=== PATIENT | female | born 1990 | race Caucasian/White ===

== ENCOUNTER 2017-02-14 21:31 | Emergency (ER) | payer MEDICAID ==
[2017-02-14 21:38] VITALS: BP 113/70
--- NOTE | 2017-02-14 22:12 | RADIOLOGY REPORT (SQ) ---
EXAM DESCRIPTION: KNEE RIGHT 3 VIEWS COMPLETED DATE/TIME: 02/14/2017 9:56 pm REASON FOR STUDY: fall COMPARISON: None. NUMBER OF VIEWS: Three views. TECHNIQUE: AP, lateral, and sunrise patella radiographic images acquired of the right knee. LIMITATIONS: None. FINDINGS: MINERALIZATION: Normal. BONES: No acute fracture or dislocation. No worrisome bone lesions. JOINT: No effusion. SOFT TISSUES: No soft tissue swelling. No radio-opaque foreign body. OTHER: No other significant finding. IMPRESSION: NEGATIVE STUDY OF THE RIGHT KNEE. NO RADIOGRAPHIC EVIDENCE OF ACUTE INJURY. TECHNICAL DOCUMENTATION: JOB ID: [id number] [employer]- All Rights Reserved
[2017-02-14] MEDS ORDERED: IBUPROFEN 600 MG TABLET PO ONE (22:53)
[2017-02-14] MEDS ORDERED: ACETAMINOPHEN 325 MG TABLET PO ONE (22:53)
--- NOTE | 2017-02-14 22:59 | ER Document Report ---
ED General - General Chief Complaint: Knee Injury Stated Complaint: RIGHT KNEE PAIN Time Seen by Provider: 02/14/17 22:48 Notes: Patient is a 26-year-old female who presents with right knee pain. Patient states this happened after she landed directly onto the knee with the entirety of her body weight while playing with her children. She states that she immediately developed a severe, constant, throbbing pain to the knee. Flexion of the knee worsens the pain. She has not tried any to improve the pain. She denies any history of prior injuries to the knee. She has not been able to ambulate secondary to pain. She denies any additional areas of injury or additional concerns. She has not seen her primary doctor regarding today's concerns. TRAVEL OUTSIDE OF THE [place] IN LAST 30 DAYS: No - Related Data Allergies/Adverse Reactions: No Known Allergies Allergy (Unverified 02/14/17 23:07) Past Medical History - General Information source: Patient - Social History Smoking Status: Current Every Day Smoker Frequency of alcohol use: None Drug Abuse: None Lives with: Spouse/Significant other Family History: Reviewed & Not Pertinent Review of Systems - Review of Systems Notes: Constitutional: Negative for fever. Eyes: Negative for visual changes. ENT: Negative for facial injury Cardiovascular: Negative for chest injury. Respiratory: Negative for shortness of breath. Gastrointestinal: Negative for abdominal injury. Genitourinary: Negative for genital injury Musculoskeletal: Positive right knee injury Skin: Negative for laceration/abrasions. Neurological: Negative for head injury. Physical Exam - Vital signs Vitals: Temp Pulse Resp BP Pulse Ox 98.1 F 110 H 18 113/70 97 02/14/17 21:37 02/14/17 21:37 02/14/17 21:37 02/14/17 21:37 02/14/17 21:37 Interpretation: Tachycardic - Resolved at the time of my reassessment at heart rate of 82 Notes: PHYSICAL EXAMINATION: GENERAL: Well-appearing, well-nourished and in no acute distress. HEAD: Atraumatic, normocephalic. EYES: sclera anicteric, conjunctiva are normal. ENT: Moist mucous membranes. NECK: Normal range of motion LUNGS: Normal work of breathing HEART: 2+ DP pulse bilaterally EXTREMITIES: no pitting or edema. No swelling to the right knee. Able to hold the knee in extension without difficulty. Able to flex the knee to 90 with mild pain. No anterior laxity. NEUROLOGICAL: No focal neurological deficits. Moves all extremities spontaneously and on command. PSYCH: Normal mood, normal affect. SKIN: Warm, Dry, normal turgor, superficial abrasion over the right patellar surface Course - Re-evaluation Re-evalutation: 02/14/17 22:57 No evidence of a septic joint, gout flare, dislocation, or fracture on exam and imaging. Suspect likely soft tissue contusion based on history of direct blow to the knee. Low clinical suspicion of an acute ligamentous injury as patient does not have a mechanism to suggest is no significant swelling to the knee. 2 + DP pulses on the right. No additional injuries. Vitals wnl. At this time, I do not see an indication for labs or further imaging. At this time will discharge with return precautions and follow-up recommendations. Verbal discharge instructions given a the bedside and opportunity for questions given. Medication warnings reviewed. Patient is in agreement with this plan and has verbalized understanding of return precautions and the need for primary care follow-up in the next 24-72 hours. - Vital Signs Vital signs: Temp Pulse Resp BP Pulse Ox 98.1 F 110 H 18 113/70 97 02/14/17 21:37 02/14/17 21:37 02/14/17 21:37 02/14/17 21:37 02/14/17 21:37 - Diagnostic Test Radiology reviewed: Image reviewed, Reports reviewed Radiology results interpreted by me: 02/15/17 02:28 Right knee x-ray: No acute fracture or dislocation Discharge - Discharge Clinical Impression: Right knee injury Qualifiers: Encounter type: initial encounter Qualified Code(s): S89.91XA - Unspecified injury of right lower leg, initial encounter Condition: Good Disposition: HOME, SELF-CARE Additional Instructions: Your x-ray does not show any acute fracture today. You likely have a soft tissue contusion. You should continue to take anti-inflammatories such as ibuprofen 600 mg every 6 hours. Continue to apply ice to the area is much your able. Please follow-up with your primary care physician if you do not have improving your symptoms in the next 1-2 weeks. Please return immediately if you develop weakness, numbness, spreading redness from the area, or any other symptoms that are concerning to you.
== END 2017-02-14 23:26 | disposition home or self-care (01) ==
LOC: ER 21:31
DX: S89.91XA Unspecified injury of right lower leg, initial encounter (principal); M25.561 Pain in right knee; F17.200 Nicotine dependence, unspecified, uncomplicated; W22.8XXA Striking against or struck by other objects, initial encounter
CPT/HCPCS: 99283; 73562; L1830; J3490 ×2

== ENCOUNTER 2017-06-17 23:59 | Inpatient (IN) | payer OTHER, MEDICAID ==
[2017-06-18] MEDS ORDERED: DIPH/PERTUSS(ACELL)/TETANUS VAC/PF 0.5 ML SYR (>=10YO) IM ONE (00:46)
[2017-06-18] MEDS ORDERED: ACETAMINOPHEN 325 MG TABLET PO ONE (00:46)
[2017-06-18] MEDS ORDERED: LIDOCAINE 1% INJ-PF (10 MG/ML) 30 ML SDV INJ ONE (00:48)
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
[2017-06-18] MEDS ORDERED: CEFAZOLIN 1 GM/D5W RTU 1 GM/50 ML RTUPB IV ONE (02:25)
[2017-06-18] MEDS ORDERED: HYDROMORPHONE HCL INJ/PF 2 MG/ML AMPULE IV ONE (02:35)
[2017-06-18] MEDS ORDERED: CEFTRIAXONE INJ 1000 MG VIAL ONE (02:46)
[2017-06-18] MEDS ORDERED: OXYCODONE-ACETAMINOPHEN 5-325 MG TABLET PO PRN ×3 (03:00→09:05)
[2017-06-18] MEDS ORDERED: ONDANSETRON HCL INJ/PF 4 MG/2 ML SDV IV PRN ×2 (03:00→09:05)
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
[2017-06-18] MEDS: FENTANYL CITRATE INJ/PF 100 MCG/2 ML AMPUL IV PRN ×2 (05:51→10:15)
[2017-06-18 06:11] LABS: ABSOLUTE BASOPHILS # (AUTO) 0.1 10^3/uL (0.0-0.2); ABSOLUTE LYMPHOCYTES (AUTO) 2.6 10^3/uL (0.5-4.7); ABSOLUTE MONOCYTES (AUTO) 0.8 10^3/uL (0.1-1.4); ABSOLUTE NEUT (AUTO) 13.6 10^3/uL (1.7-8.2); BASOPHILS % (AUTO) 0.4 % (0-2); EOSINOPHILS % (AUTO) 0.2 % (0-6); HEMATOCRIT 37.4 % (36.0-47.0); HEMOGLOBIN 13.1 g/dL (12.0-15.5); LYMPHOCYTES % (AUTO) 15.4 % (13-45); MEAN CORPUSCULAR HEMOGLOBIN 31.7 pg (27.0-33.4); MEAN CORPUSCULAR HGB CONC 34.9 g/dL (32.0-36.0); MEAN CORPUSCULAR VOLUME 91 fl (80-97); MONOCYTES % (AUTO) 4.7 % (3-13); PLATELET COUNT 232 10^3/uL (150-450); RED BLOOD COUNT 4.12 10^6/uL (3.72-5.28); RED CELL DISTRIBUTION WIDTH 13.9 % (11.5-14.0); SEGMENTED NEUTROPHILS % (AUTO) 79.3 % (42-78); TOTAL CELLS COUNTED % (AUTO) 100 %; WHITE BLOOD COUNT 17.2 10^3/uL (4.0-10.5)
[2017-06-18 06:46] LABS: ANION GAP 11 (5-19); BLOOD UREA NITROGEN 19 mg/dL (7-20); CALCIUM 9.4 mg/dL (8.4-10.2); CARBON DIOXIDE 23 mmol/L (22-30); CHLORIDE 108 mmol/L (98-107); GLUCOSE 95 mg/dL (75-110); POTASSIUM 3.6 mmol/L (3.6-5.0); SODIUM 142.2 mmol/L (137-145)
[2017-06-18] MEDS ORDERED: FENTANYL CITRATE INJ/PF 100 MCG/2 ML AMPUL ONE ×3 (07:50→10:44)
[2017-06-18] MEDS ORDERED: LIDOCAINE 2% INJ-PF (20 MG/ML) 10 ML AMPUL ONE (07:50)
[2017-06-18] MEDS ORDERED: DEXAMETHASONE SOD PHOSPHATE INJ 4 MG/1 ML VIAL ONE (07:51)
[2017-06-18] MEDS ORDERED: ONDANSETRON HCL INJ/PF 4 MG/2 ML SDV ONE (07:51)
[2017-06-18] MEDS ORDERED: PROPOFOL INJ 200 MG/20 ML VIAL IV ONE (07:51)
[2017-06-18] MEDS ORDERED: EPHEDRINE SULFATE INJ 50 MG/1 ML AMPULE ONE (07:51)
[2017-06-18] MEDS ORDERED: ACETAMINOPHEN 100 ML IV ONE (07:51)
[2017-06-18] MEDS ORDERED: MIDAZOLAM 2 MG/2 ML INJ ONE (07:51)
[2017-06-18] MEDS ORDERED: ALBUTEROL SULFATE 0.083% NEB 2.5 MG/3 ML AMPUL NEB ONE (08:07)
[2017-06-18] MEDS ORDERED: CEFAZOLIN INJ 1 GM VIAL ONE ×2 (08:17→08:23)
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
[2017-06-18] MEDS: CEFAZOLIN SODIUM 2 GM in NORMAL SALINE 100 ML IV SCH ×2 (08:38→10:07)
[2017-06-18] MEDS ORDERED: CEFAZOLIN 2 GM/D5W RTU 2 GM/50 ML RTUPB IV SCH (09:00)
[2017-06-18] MEDS ORDERED: FENTANYL CITRATE INJ/PF 100 MCG/2 ML AMPUL IV PRN ×4 (09:05→10:06)
[2017-06-18] MEDS ORDERED: MORPHINE SULFATE 10 MG/ML INJ IV PRN (09:05)
[2017-06-18] MEDS ORDERED: DIPHENHYDRAMINE HCL 50 MG/ML VIAL IV PRN (09:05)
[2017-06-18] MEDS ORDERED: MEPERIDINE HCL/PF INJ 25 MG/1 ML DISP.SYRIN IV PRN (09:05)
[2017-06-18] MEDS ORDERED: PROMETHAZINE HCL INJ 25 MG/1 ML VIAL IV PRN ×2 (09:05)
[2017-06-18] MEDS ORDERED: VECURONIUM BROMIDE INJ 10 MG VIAL IV ONE (09:08)
[2017-06-18] MEDS ORDERED: SUCCINYLCHOLINE CHLORIDE INJ 200 MG/10 ML VIAL ONE (09:08)
[2017-06-18] MEDS ORDERED: BUPIVACAINE HCL 0.5 % INJ/PF 30 ML SDV ONE (09:37)
[2017-06-18] MEDS ORDERED: BUPIVACAINE HCL 0.5 % INJ/PF 30 ML SDV INJ ONE ×2 (09:41)
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
[2017-06-18] MEDS ORDERED: KETOROLAC TROMETHAMINE 60 MG/2 ML SDV ONE (10:11)
[2017-06-18] MEDS ORDERED: OXYCODONE-ACETAMINOPHEN 5-325 MG TABLET ONE (10:11)
--- NOTE | 2017-06-18 10:11 | RADIOLOGY REPORT (SQ) ---
EXAM DESCRIPTION: ELBOW LEFT OVER 2 VIEWS; NO CHG FLUORO COMPLETED DATE/TIME: 06/18/2017 10:01 am REASON FOR STUDY: LEFT ELBOW ORIF COMPARISON: 06/18/2017 FLUOROSCOPY TIME: 0.1 MINUTE 2 images saved to PACS. TECHNIQUE: Intra-operative images acquired during surgical procedure to evaluate progress. NUMBER OF IMAGES: 2 LIMITATIONS: None. FINDINGS: 2 FLUOROSCOPIC IMAGES ACQUIRED OF THE LEFT ELBOW FOLLOWING REMOVAL OF BONE FRAGMENT ADJACE NT TO THE MEDIAL EPICONDYLE WITHOUT GROSS COMPLICATION IDENTIFIED. IMPRESSION: IMAGE(S) OBTAINED DURING PROCEDURE. COMMENT: Quality ID 145: Final reports for procedures using fluoroscopy that document radiation exp osure indices, or exposure time and number of fluorographic images (if radiation exposure indices are not available) Please consult full operative report of the attending physician for description of the procedure. TECHNICAL DOCUMENTATION: JOB ID: [id number] [employer]- All Rights Reserved Reading location - IP/workstation name: [email or web address]
--- NOTE | 2017-06-18 10:11 | RADIOLOGY REPORT (SQ) ---
EXAM DESCRIPTION: ELBOW LEFT OVER 2 VIEWS; NO CHG FLUORO COMPLETED DATE/TIME: 06/18/2017 10:01 am REASON FOR STUDY: LEFT ELBOW ORIF COMPARISON: 06/18/2017 FLUOROSCOPY TIME: 0.1 MINUTE 2 images saved to PACS. TECHNIQUE: Intra-operative images acquired during surgical procedure to evaluate progress. NUMBER OF IMAGES: 2 LIMITATIONS: None. FINDINGS: 2 FLUOROSCOPIC IMAGES ACQUIRED OF THE LEFT ELBOW FOLLOWING REMOVAL OF BONE FRAGMENT ADJACE NT TO THE MEDIAL EPICONDYLE WITHOUT GROSS COMPLICATION IDENTIFIED. IMPRESSION: IMAGE(S) OBTAINED DURING PROCEDURE. COMMENT: Quality ID 145: Final reports for procedures using fluoroscopy that document radiation exp osure indices, or exposure time and number of fluorographic images (if radiation exposure indices are not available) Please consult full operative report of the attending physician for description of the procedure. TECHNICAL DOCUMENTATION: JOB ID: [id number] [employer]- All Rights Reserved Reading location - IP/workstation name: [email or web address]
[2017-06-18] MEDS ORDERED: ESMOLOL HCL INJ/PF 100 MG/10 ML SDV IV ONE (10:12)
[2017-06-18 14:21] VITALS: BP 118/66
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
== END 2017-06-18 14:52 | disposition home or self-care (01) | DRG 494 ==
LOC: ER 23:59 → EH 06-18 03:32 → 5 06-18 05:36
PROVIDERS: ADMIT Internal Medicine; ATTEND Internal Medicine
PROC: 0MQ40ZZ Repair Left Elbow Bursa and Ligament, Open Approach (ICD-10-PCS; 2017-06-18)
PROC: 01S40ZZ Reposition Ulnar Nerve, Open Approach (ICD-10-PCS; 2017-06-18)
PROC: 0HQEXZZ Repair Left Lower Arm Skin, External Approach (ICD-10-PCS; 2017-06-18)
PROC: 0HQFXZZ Repair Right Hand Skin, External Approach (ICD-10-PCS; 2017-06-18)
PROC: 3E0234Z Introduction of Serum, Toxoid and Vaccine into Muscle, Percutaneous Approach (ICD-10-PCS; 2017-06-18)
PROC: 0PBG0ZZ Excision of Left Humeral Shaft, Open Approach (ICD-10-PCS; principal; 2017-06-18 08:30)
DX: S42.442B Displaced fracture (avulsion) of medial epicondyle of left humerus, initial encounter for open fracture (principal); S92.425A Nondisplaced fracture of distal phalanx of left great toe, initial encounter for closed fracture; S61.421A Laceration with foreign body of right hand, initial encounter; S51.012A Laceration without foreign body of left elbow, initial encounter; F17.210 Nicotine dependence, cigarettes, uncomplicated; F31.9 Bipolar disorder, unspecified; F43.10 Post-traumatic stress disorder, unspecified; V48.1XXA Car passenger injured in noncollision transport accident in nontraffic accident, initial encounter; Z23 Encounter for immunization
CPT/HCPCS: 01740; 36415; 70450; 72125; 80048; 84703; 85025; 90471; 90715; 96365; 96375; 99285; C1713; J0131; J0330; J0690; J0696; J1100; J1170; J1885; J2250; J2405; J2704; J3010; J3490

== ENCOUNTER 2017-06-26 19:48 | Emergency (ER) | payer MEDICAID, OTHER ==
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
[2017-06-26 23:22] LABS: ALANINE AMINOTRANSFERASE 27 U/L (9-52); ALBUMIN 4.5 g/dL (3.5-5.0); ALKALINE PHOSPHATASE 76 U/L (38-126); ANION GAP 12 (5-19); ASPARTATE AMINO TRANSFERASE 19 U/L (14-36); BLOOD UREA NITROGEN 11 mg/dL (7-20); CARBON DIOXIDE 26 mmol/L (22-30); CHLORIDE 107 mmol/L (98-107); GLUCOSE 100 mg/dL (75-110); POTASSIUM 3.9 mmol/L (3.6-5.0); SODIUM 145.4 mmol/L (137-145); TOTAL PROTEIN 7.2 g/dL (6.3-8.2)
[2017-06-26 23:23] LABS: BILIRUBIN,TOTAL < 0.1 mg/dL (0.2-1.3)
[2017-06-26 23:24] LABS: ABSOLUTE BASOPHILS # (AUTO) 0.1 10^3/uL (0.0-0.2); ABSOLUTE EOSINOPHILS # (AUTO) 0.2 10^3/uL (0.0-0.6); ABSOLUTE LYMPHOCYTES (AUTO) 3.6 10^3/uL (0.5-4.7); ABSOLUTE MONOCYTES (AUTO) 0.5 10^3/uL (0.1-1.4); ABSOLUTE NEUT (AUTO) 7.2 10^3/uL (1.7-8.2); BASOPHILS % (AUTO) 0.6 % (0-2); EOSINOPHILS % (AUTO) 1.7 % (0-6); HEMATOCRIT 38.5 % (36.0-47.0); HEMOGLOBIN 13.3 g/dL (12.0-15.5); LYMPHOCYTES % (AUTO) 31.2 % (13-45); MEAN CORPUSCULAR HEMOGLOBIN 32.1 pg (27.0-33.4); MEAN CORPUSCULAR HGB CONC 34.5 g/dL (32.0-36.0); MEAN CORPUSCULAR VOLUME 93 fl (80-97); MONOCYTES % (AUTO) 4.3 % (3-13); PLATELET COUNT 322 10^3/uL (150-450); RED BLOOD COUNT 4.13 10^6/uL (3.72-5.28); RED CELL DISTRIBUTION WIDTH 14.1 % (11.5-14.0); SEGMENTED NEUTROPHILS % (AUTO) 62.2 % (42-78); TOTAL CELLS COUNTED % (AUTO) 100 %; WHITE BLOOD COUNT 11.6 10^3/uL (4.0-10.5)
[2017-06-27] MEDS ORDERED: HYDROCODONE/ACETAMINOPHEN 5-325 MG (6 TAB/ER DISP) PO PRN (00:07)
--- NOTE | 2017-06-27 00:07 | ER Document Report ---
ED General - General Chief Complaint: Wound Recheck Stated Complaint: SURGICAL SITE PROBLEM Time Seen by Provider: 06/26/17 22:48 Mode of Arrival: Ambulatory Information source: Patient Notes: This is a 26-year-old female status open left elbow fracture status post surgery on the of this month. Patient presents to the emergency room with complaints of possible infection from the surgical site. She denies fever. She has had pain since surgery. TRAVEL OUTSIDE OF THE [place] IN LAST 30 DAYS: No - HPI Onset: Last week Onset/Duration: Gradual Quality of pain: Dull Severity: Mild Pain Level: 1 Associated symptoms: denies: Chest pain, Fever, Shortness of breath Exacerbated by: Movement Relieved by: Remaining still Similar symptoms previously: Yes Recently seen / treated by doctor: Yes - Related Data Allergies/Adverse Reactions: No Known Allergies Allergy (Verified 06/18/17 03:54) Past Medical History - General Information source: Patient, Friend - Social History Smoking Status: Current Every Day Smoker Cigarette use (# per day): Yes - Half pack per day Chew tobacco use (# tins/day): No Frequency of alcohol use: None Drug Abuse: None Lives with: Family Family History: Reviewed & Not Pertinent Patient has suicidal ideation: No Patient has homicidal ideation: No - Past Medical History Cardiac Medical History: Reports: None Neurological Medical History: Reports: Hx Seizures Renal/ Medical History: Denies: Hx Peritoneal Dialysis GI Medical History: Reports: Hx Hepatitis Psychiatric Medical History: Reports: Hx Anxiety, Hx Bipolar Disorder, Hx Depression, Hx Post Traumatic Stress Disorder Infectious Medical History: Reports: Hx Hepatitis Review of Systems - Review of Systems Constitutional: denies: Chills, Fever EENT: No symptoms reported Cardiovascular: No symptoms reported Respiratory: No symptoms reported Gastrointestinal: No symptoms reported Genitourinary: No symptoms reported Female Genitourinary: No symptoms reported Musculoskeletal: See HPI Skin: No symptoms reported Hematologic/Lymphatic: No symptoms reported Neurological/Psychological: No symptoms reported Physical Exam - Vital signs Vitals: Temp Pulse Resp BP Pulse Ox 98.0 F 65 18 116/51 L 99 06/26/17 20:10 06/26/17 20:10 06/26/17 20:10 06/26/17 20:10 06/26/17 20:10 Notes: Physical exam: GENERAL: 26-year-old female, alert and oriented 3, no acute distress HEAD: Atraumatic, normocephalic. EYES: Pupils equal round and reactive to light, extraocular movements intact, sclera anicteric, conjunctiva are normal. ENT: TMs normal, nares patent, oropharynx clear without exudates. Moist mucous membranes. NECK: Normal range of motion, supple without obvious mass or JVD. LUNGS: Breath sounds clear to auscultation bilaterally and equal. No wheezes rales or rhonchi. HEART: Regular rate and rhythm without murmurs, rubs or gallops. ABDOMEN: Soft, normoactive bowel sounds. No tenderness to palpation. No guarding, no rebound. No masses appreciated. EXTREMITIES: Left elbow: wound site dry and intact. There is no overlying erythema or pussy drainage. There is an abrasion just inferior to the wound site which is without any overlying cellulitis sore pus drainage. Distally, extremities intact. NEUROLOGICAL: Cranial nerves II through XII grossly intact. Normal speech, moving all extremities. PSYCH: Normal mood, normal affect. SKIN: Warm, Dry, normal turgor, no rashes or lesions noted. Course - Vital Signs Vital signs: Temp Pulse Resp BP Pulse Ox 98.7 F 74 18 124/74 100 06/27/17 00:46 06/27/17 00:46 06/27/17 00:46 06/27/17 00:46 06/27/17 00:46 - Laboratory Result Diagrams: 06/26/17 22:45 06/26/17 22:45 Laboratory results interpreted by me: 06/26/17 06/26/17 22:45 22:45 WBC 11.6 H RDW 14.1 H Sodium 145.4 H Total Bilirubin < 0.1 L Discharge - Discharge Clinical Impression: Pain from the surgical site Condition: Stable Disposition: HOME, SELF-CARE Additional Instructions: As we discussed, the wound site actually looks quite good today. I would call Dr. Abraham's office tomorrow and let them know you in the ER and that your blood work looked good. Also, inquire about how often they want the dressing change. Return to the emergency room for any worsening pain, any pussy drainage, any fever (temperature greater than 100.5) or any concerns or getting worse. Prescriptions: Hydrocodone/Acetaminophen [[place] 5-325 mg Tablet] 1 tab PO Q8HP PRN #14 tablet PRN Reason: Referrals: VIRGIL HARRINGTON MD [Primary Care Provider] - Follow up as needed
[2017-06-27 00:48] VITALS: BP 124/74
--- NOTE | 2017-06-27 04:25 | RADIOLOGY REPORT (SQ) ---
EXAM DESCRIPTION: ELBOW LEFT OVER 2 VIEWS CLINICAL HISTORY: 26 years, Female, purl drainage from elbow s.p surgery on 06/18 COMPARISON: CR and CT, June 18, 2017 NUMBER OF VIEWS: 4 LIMITATIONS: None. FINDINGS: Tiny calcified fragments measuring up to 0.3 cm each and moderate soft tissue swelling medial to the medial epicondyle. Extensive, moderate subcutaneous soft tissue swelling of the posterior left upper arm. Remainder of the left elbow appears intact. No significant joint effusion. IMPRESSION: Extensive soft tissue swelling and tiny residual calcifications/fragments of the left elbow.
== END 2017-06-27 00:47 | disposition home or self-care (01) ==
LOC: ER 19:48
DX: G89.18 Other acute postprocedural pain (principal); S42.402D Unspecified fracture of lower end of left humerus, subsequent encounter for fracture with routine healing; V49.9XXD Car occupant (driver) (passenger) injured in unspecified traffic accident, subsequent encounter; F17.210 Nicotine dependence, cigarettes, uncomplicated
CPT/HCPCS: 36415; 80053; 84703; 85025; 99283

== ENCOUNTER 2017-09-07 01:19 | Emergency (ER) | payer MEDICAID ==
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
[2017-09-07 01:43] LABS: ABSOLUTE BASOPHILS # (AUTO) 0.1 10^3/uL (0.0-0.2); ABSOLUTE LYMPHOCYTES (AUTO) 3.1 10^3/uL (0.5-4.7); ABSOLUTE MONOCYTES (AUTO) 0.5 10^3/uL (0.1-1.4); BASOPHILS % (AUTO) 0.6 % (0-2); EOSINOPHILS % (AUTO) 0.5 % (0-6); HEMATOCRIT 44.2 % (36.0-47.0); HEMOGLOBIN 15.5 g/dL (12.0-15.5); LYMPHOCYTES % (AUTO) 29.3 % (13-45); MEAN CORPUSCULAR HEMOGLOBIN 32.8 pg (27.0-33.4); MEAN CORPUSCULAR VOLUME 94 fl (80-97); PLATELET COUNT 291 10^3/uL (150-450); RED BLOOD COUNT 4.72 10^6/uL (3.72-5.28); RED CELL DISTRIBUTION WIDTH 13.1 % (11.5-14.0); SEGMENTED NEUTROPHILS % (AUTO) 64.6 % (42-78); TOTAL CELLS COUNTED % (AUTO) 100 %; WHITE BLOOD COUNT 10.8 10^3/uL (4.0-10.5)
[2017-09-07 01:59] LABS: ANION GAP 15 (5-19); BLOOD UREA NITROGEN 17 mg/dL (7-20); CALCIUM 9.7 mg/dL (8.4-10.2); CARBON DIOXIDE 27 mmol/L (22-30); CHLORIDE 107 mmol/L (98-107); GLUCOSE 91 mg/dL (75-110); POTASSIUM 3.9 mmol/L (3.6-5.0); SODIUM 148.7 mmol/L (137-145)
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
[2017-09-07] MEDS ORDERED: KETOROLAC TROMETHAMINE INJ/PF 30 MG/1 ML SDV IV ONE (03:23)
[2017-09-07] MEDS ORDERED: METOCLOPRAMIDE HCL INJ/PF 10 MG/2 ML SDV IV ONE (03:23)
[2017-09-07 05:14] VITALS: BP 114/62
== END 2017-09-07 04:10 | disposition home or self-care (01) ==
LOC: ER 01:19
DX: S19.9XXA Unspecified injury of neck, initial encounter (principal); R04.0 Epistaxis; R51 Headache; R11.10 Vomiting, unspecified; Y04.2XXA Assault by strike against or bumped into by another person, initial encounter
CPT/HCPCS: 99284; 96374; 96375; 36415; 84703; 85025; 80048; 70496; 70498; J1885; J2765

== ENCOUNTER 2017-10-12 13:01 | Emergency (ER) | payer MEDICAID ==
[2017-10-12 14:01] VITALS: BP 105/63
[2017-10-12] MEDS ORDERED: MAG HYDROX/AL HYDROX/SIMETH SUSP 30 ML UDCUP PO ONE (16:03)
[2017-10-12] MEDS ORDERED: METOCLOPRAMIDE HCL ORAL SOLN 10 MG/10 ML UDCUP PO ONE (16:03)
[2017-10-12] MEDS ORDERED: LIDOCAINE 2% VISCOUS SOLN 20 ML UDCUP PO ONE (16:03)
--- NOTE | 2017-10-12 16:04 | ER Document Report ---
ED General - General Chief Complaint: Chest Pain Stated Complaint: CHEST PAIN Time Seen by Provider: 10/12/17 15:59 Notes: 27-year-old female patient states that she feels like she has some chest pain. Chest pain started after she swallowed her pills wrong. Patient has a history of hiatal hernia and reflux. Takes omeprazole every day. Patient was concerned and wanted to get it checked out today. Denies any shortness of breath. Denies any abdominal pain. Able to eat and drink without difficulty. TRAVEL OUTSIDE OF THE [place] IN LAST 30 DAYS: No - HPI Onset: This morning Onset/Duration: Gradual, Better Quality of pain: Sharp Severity: Moderate Pain Level: 3 - Related Data Allergies/Adverse Reactions: No Known Allergies Allergy (Verified 10/12/17 13:03) Past Medical History - General Information source: Patient - Social History Smoking Status: Current Every Day Smoker Cigarette use (# per day): Yes Frequency of alcohol use: None Lives with: Family Family History: Reviewed & Not Pertinent - Medical History Medical History: Negative Neurological Medical History: Reports: Hx Seizures Renal/ Medical History: Denies: Hx Peritoneal Dialysis GI Medical History: Reports: Hx Hepatitis Psychiatric Medical History: Reports: Hx Anxiety, Hx Bipolar Disorder, Hx Depression, Hx Post Traumatic Stress Disorder Infectious Medical History: Reports: Hx Hepatitis - Immunizations Hx Diphtheria, Pertussis, Tetanus Vaccination: Yes Review of Systems - Review of Systems Constitutional: No symptoms reported EENT: No symptoms reported Cardiovascular: Chest pain. denies: Palpitations, Heart racing Respiratory: No symptoms reported Gastrointestinal: No symptoms reported Genitourinary: No symptoms reported Female Genitourinary: No symptoms reported Musculoskeletal: No symptoms reported Skin: No symptoms reported Hematologic/Lymphatic: No symptoms reported Neurological/Psychological: No symptoms reported Physical Exam - Vital signs Vitals: Temp Pulse Resp BP Pulse Ox 98.5 F 64 18 105/63 98 10/12/17 13:59 10/12/17 13:59 10/12/17 13:59 10/12/17 13:59 10/12/17 13:59 Interpretation: Normal - General General appearance: Appears well, Alert - HEENT Head: Normocephalic, Atraumatic Eyes: Normal Pupils: PERRL - Respiratory Respiratory status: No respiratory distress Chest status: Nontender Breath sounds: Normal Chest palpation: Normal - Cardiovascular Rhythm: Regular Heart sounds: Normal auscultation Murmur: No - Abdominal Inspection: Normal Distension: No distension Bowel sounds: Normal Tenderness: Nontender Organomegaly: No organomegaly - Back Back: Normal, Nontender - Extremities General upper extremity: Normal inspection, Nontender, Normal color, Normal ROM , Normal temperature General lower extremity: Normal inspection, Nontender, Normal color, Normal ROM , Normal temperature, Normal weight bearing. No: Ismael's sign - Neurological Neuro grossly intact: Yes Cognition: Normal Orientation: AAOx4 Pinky Coma Scale Eye Opening: Spontaneous Pinky Coma Scale Verbal: Oriented Mcl[place] Coma Scale Motor: Obeys Commands Mcl[place] Coma Scale Total: 15 Speech: Normal Motor strength normal: LUE, RUE, LLE, RLE Sensory: Normal - Psychological Associated symptoms: Normal affect, Normal mood - Skin Skin Temperature: Warm Skin Moisture: Dry Skin Color: Normal Course - Re-evaluation Re-evalutation: 10/12/17 20:37 Chest X-Ray 10/12/17 16:04 IMPRESSION: NO ACUTE RADIOGRAPHIC FINDING IN THE CHEST. Patient felt better after GI cocktail and some Pepcid. Able to eat and drink. EKG unremarkable. Chest x-ray negative. No significant cardiac risk factors. Will DC at this time - Vital Signs Vital signs: Temp Pulse Resp BP Pulse Ox 98.5 F 64 18 105/63 98 10/12/17 13:59 10/12/17 13:59 10/12/17 13:59 10/12/17 13:59 10/12/17 13:59 - EKG Interpretation by Me EKG shows normal: Sinus rhythm, [place], Intervals, QRS Complexes, ST-T Waves Discharge - Discharge Clinical Impression: Dyspepsia Condition: Good Disposition: HOME, SELF-CARE Instructions: Dyspepsia ([facility]), Reflux Disease (GERD) ([facility]) Additional Instructions: Continues to take your antacid medicine. I am recommending that you begin Zantac or Pepcid twice a day for the next week to see if this will help. In the event that you develop any worsening symptoms please return. Referrals: VIRGIL HARRINGTON MD [ACTIVE STAFF] - Follow up as needed
--- NOTE | 2017-10-12 16:27 | RADIOLOGY REPORT (SQ) ---
EXAM DESCRIPTION: CHEST 2 VIEWS COMPLETED DATE/TIME: 10/12/2017 4:18 pm REASON FOR STUDY: CP COMPARISON: None. EXAM PARAMETERS: NUMBER OF VIEWS: two views TECHNIQUE: Digital Frontal and Lateral radiographic views of the chest acquired. RADIATION DOSE: NA LIMITATIONS: none FINDINGS: LUNGS AND PLEURA: No opacities, masses or pneumothorax. No pleural effusion. MEDIASTINUM AND HILAR STRUCTURES: No masses or contour abnormalities. HEART AND VASCULAR STRUCTURES: Heart normal size. No evidence for failure. BONES: No acute findings. HARDWARE: None in the chest. OTHER: No other significant finding. IMPRESSION: NO ACUTE RADIOGRAPHIC FINDING IN THE CHEST. TECHNICAL DOCUMENTATION: JOB ID: [id number] [employer]- All Rights Reserved Reading location - IP/workstation name: [email or web address]
--- NOTE | 2017-10-12 23:33 | EKG REPORT ---
SEVERITY:- NORMAL ECG - SINUS RHYTHM : Confirmed by: Amelia Duran MD 12-Oct-2017 23:32:18
== END 2017-10-12 17:50 | disposition home or self-care (01) ==
LOC: ER 13:01
DX: R10.13 Epigastric pain (principal); R07.9 Chest pain, unspecified; F17.210 Nicotine dependence, cigarettes, uncomplicated
CPT/HCPCS: 93005; 99285; 71046; 93010; J3490 ×3

== ENCOUNTER 2018-10-17 11:57 | Emergency (ER) | payer SELFPAY ==
[2018-10-17] MEDS ORDERED: KETOROLAC TROMETHAMINE INJ/PF 30 MG/1 ML SDV IV ONE (12:41)
--- NOTE | 2018-10-17 12:46 | ER Document Report ---
ED Seizure - General Stated Complaint: POSSIBLE SEIZURE Time Seen by Provider: 10/17/18 12:30 Mode of Arrival: Medic Information source: Patient, Parent, Relative, Emergency Med Personnel, [facility] Records Notes: 28-year-old female patient past medical history seizure disorder who takes Aptiom. Her mother reports the she was standing in her room at home and suddenly began looking off into space turning her head like she was staring at different paintings in the room. She then fell to the floor, the mother assisted her down. She then had a jerking all over and drooling that lasted about 5 minutes. Postictal state lasted about 25 minutes. By history the last seizure was in May 2018, she follow-up with her neurologist about 6 weeks later in the office. She did not chew her tongue this time, there was no urine incontinence. At this time she complains of a headache which is characteristic of her seizure, and she does feel tired. She denies any injuries from falling to the floor. - Related Data Allergies/Adverse Reactions: No Known Allergies Allergy (Verified 10/12/17 13:03) Past Medical History - General Information source: Patient, Parent, Relative, Emergency Med Personnel, [facility] Records - Social History Smoking Status: Current Every Day Smoker Cigarette use (# per day): Yes Chew tobacco use (# tins/day): No Smoking Education Provided: No Frequency of alcohol use: None Drug Abuse: None Occupation: Unemployed Family History: Reviewed & Not Pertinent Neurological Medical History: Reports: Hx Seizures GI Medical History: Reports: Hx Hepatitis Psychiatric Medical History: Reports: Hx Anxiety, Hx Bipolar Disorder, Hx Depression, Hx Post Traumatic Stress Disorder Infectious Medical History: Reports: Hx Hepatitis Surgical Hx: Negative - Immunizations Hx Diphtheria, Pertussis, Tetanus Vaccination: Yes Review of Systems - Review of Systems Constitutional: No symptoms reported EENT: No symptoms reported Cardiovascular: No symptoms reported Respiratory: No symptoms reported Gastrointestinal: No symptoms reported Genitourinary: No symptoms reported Female Genitourinary: No symptoms reported Musculoskeletal: No symptoms reported Skin: No symptoms reported Hematologic/Lymphatic: No symptoms reported Neurological/Psychological: No symptoms reported Physical Exam - Vital signs Vitals: Resp BP Pulse Ox 9 L 85/53 L 100 10/17/18 12:03 10/17/18 12:03 10/17/18 12:03 Interpretation: Normal - General General appearance: Appears well, Alert In distress: None - HEENT Head: Normocephalic, Atraumatic Eyes: Normal Pupils: PERRL Mouth/Lips: Normal. No: Laceration Mucous membranes: Normal Pharynx: Normal Neck: Normal - Respiratory Respiratory status: No respiratory distress Breath sounds: Normal - Cardiovascular Rhythm: Regular Heart sounds: Normal auscultation Murmur: No - Abdominal Inspection: Normal Distension: No distension Bowel sounds: Normal - Back Back: Normal - Extremities General upper extremity: Normal inspection General lower extremity: Normal inspection - Neurological Neuro grossly intact: Yes - Psychological Associated symptoms: Normal affect, Normal mood Course - Re-evaluation Re-evalutation: 10/17/18 14:26 Patient is wide awake now, she is feeling much better. She did get some apple juice to drink due to her low blood sugar. - Vital Signs Vital signs: Temp Pulse Resp BP Pulse Ox 17 90/54 L 99 10/17/18 13:03 10/17/18 13:03 10/17/18 13:03 - Laboratory Result Diagrams: 10/17/18 12:15 10/17/18 12:15 Laboratory results interpreted by me: 10/17/18 10/17/18 10/17/18 12:15 12:15 13:20 RBC 3.64 L Hgb 11.7 L Hct 34.3 L Chloride 112 H Carbon Dioxide 19 L Creatinine 0.48 L Glucose 57 L Calcium 7.8 L Alkaline Phosphatase 31 L Total Protein 5.1 L Albumin 3.0 L Urine Blood MODERATE H Valproic Acid < 10.0 L Discharge - Discharge Clinical Impression: Seizure, Hypoglycemia Condition: Stable Disposition: HOME, SELF-CARE Additional Instructions: Seizure, Known Epileptic You have had a seizure. Seizures may "break through" in an epileptic due to stress of infection or injury, a change in blood chemistry, or drug and alcohol use. Another common cause is failure to take medication as prescribed. Your doctor has evaluated your situation for the likely cause of this seizure. It is important that you follow his advice concerning any medication changes and follow-up care. Further testing of anti-seizure medication levels in your blood may be necessary. 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 This seizure must be reported to the tractor sweeper driver's license bureau. Call the doctor or return if seizures recur, or if new or unusual symptoms arise -- such as severe headache, confusion, excessive sleepiness, local weakness or numbness, neck stiffness, or fever. Your blood sugar was very low today. This may have lower your seizure threshold and cause you to have your seizure today. Be sure not to skip meals. Drink plenty of fluids get plenty of rest today. Follow-up with your neurologist in the next several days for recheck. RETURN TO THE EMERGENCY ROOM IF ANY NEW OR WORSENING SYMPTOMS.
[2018-10-17 13:08] LABS: ABSOLUTE BASOPHILS # (AUTO) 0.1 10^3/uL (0.0-0.2); ABSOLUTE EOSINOPHILS # (AUTO) 0.1 10^3/uL (0.0-0.6); ABSOLUTE LYMPHOCYTES (AUTO) 1.4 10^3/uL (0.5-4.7); ABSOLUTE MONOCYTES (AUTO) 0.3 10^3/uL (0.1-1.4); ABSOLUTE NEUT (AUTO) 3.9 10^3/uL (1.7-8.2); BASOPHILS % (AUTO) 0.9 % (0-2); EOSINOPHILS % (AUTO) 1.8 % (0-6); HEMATOCRIT 34.3 % (36.0-47.0); HEMOGLOBIN 11.7 g/dL (12.0-15.5); LYMPHOCYTES % (AUTO) 25.1 % (13-45); MEAN CORPUSCULAR HEMOGLOBIN 32.3 pg (27.0-33.4); MEAN CORPUSCULAR HGB CONC 34.2 g/dL (32.0-36.0); MEAN CORPUSCULAR VOLUME 94 fl (80-97); MONOCYTES % (AUTO) 4.6 % (3-13); PLATELET COUNT 198 10^3/uL (150-450); RED BLOOD COUNT 3.64 10^6/uL (3.72-5.28); RED CELL DISTRIBUTION WIDTH 13.3 % (11.5-14.0); SEGMENTED NEUTROPHILS % (AUTO) 67.6 % (42-78); TOTAL CELLS COUNTED % (AUTO) 100 %; WHITE BLOOD COUNT 5.8 10^3/uL (4.0-10.5)
[2018-10-17 13:20] LABS: ALKALINE PHOSPHATASE 31 U/L (38-126); ANION GAP 8 (5-19); ASPARTATE AMINO TRANSFERASE 17 U/L (14-36); BILIRUBIN,DIRECT 0.2 mg/dL (0.0-0.4); BILIRUBIN,TOTAL 0.2 mg/dL (0.2-1.3); BLOOD UREA NITROGEN 11 mg/dL (7-20); CALCIUM 7.8 mg/dL (8.4-10.2); CARBON DIOXIDE 19 mmol/L (22-30); CHLORIDE 112 mmol/L (98-107); CREATINE KINASE 87 U/L (30-135); POTASSIUM 4.1 mmol/L (3.6-5.0); TOTAL PROTEIN 5.1 g/dL (6.3-8.2)
[2018-10-17 13:31] LABS: GLUCOSE 57 mg/dL (75-110)
[2018-10-17 13:43] VITALS: BP 90/54
[2018-10-17 14:04] LABS: APPEARANCE,URINE CLEAR; BILIRUBIN,URINE NEGATIVE (NEGATIVE); COLOR,URINE STRAW; GLUCOSE, URINE NEGATIVE (NEGATIVE); KETONES,URINE NEGATIVE (NEGATIVE); LEUKOCYTE ESTERASE,URINE NEGATIVE (NEGATIVE); NITRITE,URINE NEGATIVE (NEGATIVE); PROTEIN,URINE NEGATIVE (NEGATIVE); URINE SPECIFIC GRAVITY 1.011; UROBILINOGEN,URINE NEGATIVE mg/dL (<2.0)
== END 2018-10-17 14:40 | disposition home or self-care (01) ==
LOC: ER 11:57
DX: G40.909 Epilepsy, unspecified, not intractable, without status epilepticus (principal); E16.2 Hypoglycemia, unspecified; F17.210 Nicotine dependence, cigarettes, uncomplicated
CPT/HCPCS: 99284; 96374; 36415; 82550; 84703; 85025; 80053; 81001; 80164; J1885

== ENCOUNTER 2018-12-27 10:29 | Emergency (ER) | payer SELFPAY ==
[2018-12-27 10:37] VITALS: BP 104/51
[2018-12-27] MEDS ORDERED: LIDOCAINE 2% VISCOUS SOLN 20 ML UDCUP PO ONE (11:02)
[2018-12-27] MEDS ORDERED: PENICILLIN V POTASSIUM 500 MG TABLET PO ONE (11:03)
--- NOTE | 2018-12-27 11:07 | ER Document Report ---
HPI - HPI Patient complains to provider of: tooth pain Time Seen by Provider: 12/27/18 10:54 Context: 28-year-old female presents to the emergency department with pain of the #19 tooth. Patient states that she got some dental work at Dr. Juares's office and she thinks that all partial filling broke off. Patient states that the pain is gotten acutely worse over the last 1 week and then when she woke up this morning she noticed some swelling of her jaw that is new. Patient denies any fevers or chills, denies trismus, is able to control her secretions. - REPRODUCTIVE Reproductive: DENIES: : Past Medical History - Social History Smoking Status: Unknown if Ever Smoked Family History: Reviewed & Not Pertinent Neurological Medical History: Reports: Hx Seizures Renal/ Medical History: Denies: Hx Peritoneal Dialysis GI Medical History: Reports: Hx Hepatitis Psychiatric Medical History: Reports: Hx Anxiety, Hx Bipolar Disorder, Hx Depression, Hx Post Traumatic Stress Disorder Infectious Medical History: Reports: Hx Hepatitis - Immunizations Hx Diphtheria, Pertussis, Tetanus Vaccination: Yes Vertical Provider Document - CONSTITUTIONAL Notes: PHYSICAL EXAMINATION: Reviewed vital signs and charting by RN GENERAL: Alert, interacts well. No acute distress. HEAD: Normocephalic, atraumatic. EYES: Pupils equal and round. Extraocular movements intact. ENT: Oral mucosa moist, tongue midline. Purulent discharge coming from the buccal side of the gingiva at the #19 tooth, there is some edema local to the area, mild erythema in the area NECK: Full range of motion. Trachea midline. EXTREMITIES: Moves all 4 extremities spontaneously. No edema, No cyanosis. PSYCH: Normal affect, normal mood. SKIN: Warm, dry, normal turgor. No rashes or lesions noted. - INFECTION CONTROL TRAVEL OUTSIDE OF THE [place] IN LAST 30 DAYS: No Course - Re-evaluation Re-evalutation: 12/27/18 11:05 Presentation is most consistent with likely an infected tooth. Airway is patent. Vitals within normal limits. Patient is able swallow without any difficulty. There is no significant facial swelling. No evidence of Lazarus angina, apical abscess, or airway obstruction. Patient will be started on antib iotics. I've instructed to follow-up with dentistry as earliest ability for definitive management. I did take an 18-gauge needle and punctured an area of fluctuance and purulent discharge was expressed from the area. I told patient to continue to massage it. At this time will discharge with return precautions and follow-up recommendations. Verbal discharge instructions given a the bedside and opportunity for questions given. Medication warnings reviewed. Patient is in agreement with this plan and has verbalized understanding of return precautions and the need for primary care follow-up in the next 24-72 hours. 12/27/18 11:26 - Vital Signs Vital signs: Temp Pulse Resp BP Pulse Ox 98.5 F 70 16 104/51 L 98 12/27/18 10:36 12/27/18 10:36 12/27/18 10:36 12/27/18 10:36 12/27/18 10:36 Discharge - Discharge Clinical Impression: Dental infection Condition: Good Disposition: HOME, SELF-CARE Additional Instructions: You have been seen for dental pain and a small abscess of the #19 tooth. You have been prescribed penicillin VK 500 mg and you should take 1 tablet in the morning and 1 tablet in the evening for 10 days. Also, you can continue to take ibuprofen 600 mg every 6 hours with food and/or milk. Please do not take ibuprofen and naproxen together as they are in the same drug class and can put you at risk for a stomach ulcer. It is very important that you follow-up with a dentist for definitive care. Please return if you develop fever greater than 101, swelling in your face, vomiting, difficulty breathing or swallowing, or any other symptoms that are concerning to you. Prescriptions: Penicillin V Potassium [Penicillin Vk 500 mg Tablet] 500 mg PO BID #20 tablet
== END 2018-12-27 11:32 | disposition home or self-care (01) ==
LOC: ER 10:29
DX: K04.7 Periapical abscess without sinus (principal); K08.89 Other specified disorders of teeth and supporting structures; Z98.890 Other specified postprocedural states
CPT/HCPCS: 99282; J3490